=== PATIENT | male | born 1990 | race Caucasian/White ===

== ENCOUNTER 2017-11-12 06:41 | Emergency (ER) | payer OTHER ==
[2017-11-12 06:52] VITALS: RESP 18; TEMP 98.3
[2017-11-12] MEDS ORDERED: DIPH,PERTUS(ACELL)TETVAC-LF 0.5 ML VIAL IM ONE (07:01)
--- NOTE | 2017-11-12 07:31 | ED ---
General Adult HPI - General Chief complaint: Extremity Injury, Lower Stated complaint: [facility] Stepped on nail,needs tetanus Time Seen by Provider: 11/12/17 07:01 Source: patient, RN notes reviewed, old records reviewed Mode of arrival: ambulatory Limitations: no limitations - History of Present Illness Initial comments: 27-year-old male presents from work after stepping on a nail. Patient was wearing his work boots. Nail was intact, no concern for foreign body. This was his right foot. Patient is presenting with request for tetanus vaccination. Denies any other injury. This occurred several hours prior to arrival. - Related Data Previous Rx's Medication Instructions Recorded Levofloxacin [Levaquin] 500 mg PO DAILY 3 Days #5 tab 11/12/17 Allergies Allergy/AdvReac Type Severity Reaction Status Date / Time Penicillins AdvReac Unknown Verified 11/12/17 07:53 Review of Systems ROS Statement: Those systems with pertinent positive or pertinent negative responses have been documented in the HPI. ROS Other: All systems not noted in ROS Statement are negative. Past Medical History Past Medical History: No Reported History History of Any Multi-Drug Resistant Organisms: None Reported Past Surgical History: No Surgical Hx Reported Past Psychological History: No Psychological Hx Reported Smoking Status: Never smoker Past Alcohol Use History: None Reported Past Drug Use History: None Reported General Exam Limitations: no limitations General appearance: alert, in no apparent distress Respiratory exam: Present: normal lung sounds bilaterally. Absent: respiratory distress Cardiovascular Exam: Present: regular rate, normal rhythm Extremities exam: Present: other (Very small puncture wound on the mid plantar surface of right foot, no bleeding, no significant pain or erythema.) Course Vital Signs 11/12/17 11/12/17 06:50 07:57 Temperature 98.3 F Pulse Rate 59 L 72 Respiratory 18 18 Rate Blood Pressure 133/81 124/74 O2 Sat by Pulse 100 98 Oximetry Medical Decision Making - Medical Decision Making Patient's tetanus is updated. He is started on prophylactic antibiotics for puncture injury through the sole of the shoe. He will follow-up with his primary care physician. He will watch closely for signs of infection. Disposition Clinical Impression: Puncture wound of skin from metal nail Disposition: HOME SELF-CARE Condition: Good Instructions: Puncture Wound (ED) Prescriptions: Levofloxacin [Levaquin] 500 mg PO DAILY 3 Days #5 tab Is patient prescribed a controlled substance at d/c from ED?: No Referrals: Chuck De La Cruz DO [Primary Care Provider] - 1-2 days Time of Disposition: 07:30
[2017-11-12 07:59] VITALS: BP 124/74; PULSE 72
== END 2017-11-12 08:03 | disposition home or self-care (01) ==
LOC: EC 06:41
DX: S91.331A Puncture wound without foreign body, right foot, initial encounter (principal); Z23 Encounter for immunization; Z88.0 Allergy status to penicillin; W45.0XXA Nail entering through skin, initial encounter; Y92.69 Other specified industrial and construction area as the place of occurrence of the external cause; Y99.0 Civilian activity done for income or pay
CPT/HCPCS: 90471; 90715; 99283

== ENCOUNTER 2022-10-02 10:37 | Inpatient (IN) | payer OTHER ==
[2022-10-02] MEDS ORDERED: LORazepam 1 MG TAB PO ONE (12:20)
--- NOTE | 2022-10-02 12:22 | ED ---
General Adult HPI - General Source: police, RN notes reviewed Mode of arrival: ambulatory Limitations: no limitations <Dora Shoemaker - Last Filed: 10/02/22 18:41> <Berta Jeronimo - Last Filed: 10/03/22 15:44> - General Chief complaint: Psychiatric Symptoms Stated complaint: petition Time Seen by Provider: 10/02/22 11:28 - History of Present Illness Initial comments: 32-year-old male with extensive psychiatric medical history presents to the emergency department with a chief complaint of psychiatric evaluation. He is placed escorted today. He reports worsening depression, anxiety, OCD. He denies any suicidal ideation at this time, highly homicidal ideation. However he does report increased aggression that is unpredictable. He will have outbursts and be aggressive with his . He denies any visual or auditory hallucinations. Denies any illicit drug use. Denies any specific complaints at this time. Patient is been taking his Prozac as prescribed. (Dora Shoemaker ) - Related Data Home Medications Medication Instructions Recorded Confirmed PARoxetine [Paxil] 20 mg PO BID 10/02/22 10/02/22 Allergies Allergy/AdvReac Type Severity Reaction Status Date / Time Penicillins AdvReac Unknown Verified 10/02/22 16:09 Childhood Review of Systems ROS Other: All systems not noted in ROS Statement are negative. <Dora Shoemaker - Last Filed: 10/02/22 18:41> ROS Other: All systems not noted in ROS Statement are negative. <Berta Jeronimo - Last Filed: 10/03/22 15:44> ROS Statement: Those systems with pertinent positive or pertinent negative responses have been documented in the HPI. Past Medical History Past Medical History: No Reported History History of Any Multi-Drug Resistant Organisms: None Reported Past Surgical History: No Surgical Hx Reported Past Psychological History: Anxiety, Bipolar, Panic Disorder Smoking Status: Never smoker Past Alcohol Use History: None Reported Past Drug Use History: Marijuana <Dora Shoemaker - Last Filed: 10/02/22 18:41> General Exam Limitations: no limitations <Dora Shoemaker - Last Filed: 10/02/22 18:41> - General Exam Comments Initial Comments: General: Alert, in no acute distress Head: atraumatic normocephalic. Eyes PERRL, EOMI intact, mucous membranes moist Respiratory: Lungs clear to auscultation bilaterally Cardiovascular: Heart rate regular rate and rhythm Abdominal: Soft without guarding or rebound Extremities: Normal inspection with full range of motion and normal capillary refill Neuroogic: alert and oriented 3, CN II-XII intact, able to ambulate with steady gait Skin: warm dry and intact with normal color (Dora Shoemaker) Course <Dora Shoemaker - Last Filed: 10/02/22 18:41> Vital Signs 10/02/22 10/02/22 10:40 14:57 Temperature 98 F Pulse Rate 59 L 74 Respiratory 20 18 Rate Blood Pressure 136/88 130/76 O2 Sat by Pulse 99 99 Oximetry - Reevaluation(s) Reevaluation #1: 10/02/22 12:22 [place] discussed with ROSA ISELA Nicole RN who believes the patient meets inpatient criteria. (Dora Shoemaker) Medical Decision Making <Dora Shoemaker - Last Filed: 10/02/22 18:41> - Lab Data Result diagrams: 10/03/22 06:44 10/03/22 06:44 <Berta Jeronimo - Last Filed: 10/03/22 15:44> - Medical Decision Making Was pt. sent in by a medical professional or institution (WEN [place]ona, POEM WRITER, urgent care, hospital, or assisted...) When possible be specific @ -[No] Did you speak to anyone other than the patient for history (EMS, parent, family, police, friend...)? What history was obtained from this source @ -[facility] Did you review nursing and triage notes (agree or disagree)? Why? @ -[I reviewed and agree with nursing and triage notes] Were old charts reviewed (outside hosp., previous admission, EMS record, old EKG, old radiological studies, urgent care reports/EKG's, assisted records)? Report findings @ -[No old charts were reviewed] Differential Diagnosis (chest pain, altered mental status, abdominal pain women, abdominal pain men, vaginal bleeding, weakness, fever, dyspnea, syncope, headache, dizziness, GI bleed, back pain, seizure, CVA, palpatations, mental health, musculoskeletal)? @ -[not applicable] EKG interpreted by me (3pts min.). @ -[As above] X-rays interpreted by me (1pt min.). @ -[None done] CT interpreted by me (1pt min.). @ -[None done] U/S interpreted by me (1pt. min.). @ -[None done] What testing was considered but not performed or refused? (CT, X-rays, U/S, labs)? Why? @ -[None] patient is homicidal and unpredictable with increased agitation What meds were considered but not given or refused? Why? @ -[None] Did you discuss the management of the patient with other professionals (professionals i.e. , PA, POEM WRITER, lab, RT, psych nurse, social welfare research worker, senior software systems engineer, teacher, defence force senior officer, mental health case manager)? Give summary @ -Case discussed with EPS RN Who Please the Patient Meets Inpatient Criteria Management Was smoking cessation discussed for >3mins.? @ -[No] Was critical care preformed (if so, how long)? @ -[No] Were there social determinants of health that impacted care today? How? (Homelessness, low income, unemployed, alcoholism, drug addiction, transportation, low edu. Level, literacy, decrease access to med. care, long-term, rehab)? @ -[No] Was there de-escalation of care discussed even if they declined (Discuss DNR or withdrawal of care, Hospice)? DNR status @ -[No] What co-morbidities impacted this encounter? (DM, HTN, Smoking, COPD, CAD, Cancer, CVA, ARF, Chemo, Hep., AIDS, mental health diagnosis, sleep apnea, morbid obesity)? @ -[None] Was patient admitted / discharged? Hospital course, mention meds given and route, prescriptions, significant lab abnormalities, going to OR and other pertinent info. @ -6 admission. This is a 32-year-old male who presents the emergency department with increased aggressiveness and homicidal ideation. Patient had a thorough history and physical exam performed on the emergency department. Physical exam is essentially unremarkable. Heart rate regular rate and rhythm, lungs clear to auscultation bilaterally, abdomen soft and nontender. Patient is calm and cooperative with ED staff. He was seen and evaluated by Bonnie EPS RN who recommends inpatient psychiatric management. Patient was given oral Ativan. Patient was petitioned. Case discussed with Dr. Jeronimo, [facility] who agrees with plan of care Undiagnosed new problem with uncertain prognosis? @ -[No] Drug Therapy requiring intensive monitoring for toxicity (Heparin, Nitro, Insulin, Cardizem)? @ -[No] Were any procedures done? @ -[No] Diagnosis/symptom? @ -Homicidal Ideation Acute, or Chronic, or Acute on Chronic? @ -Acute Uncomplicated (without systemic symptoms) or Complicated (systemic symptoms)? @ -Uncomplicated Side effects of treatment? @ -[No] Exacerbation, Progression, or Severe Exacerbation? @ -[No] Poses a threat to life or bodily function? How? (Chest pain, USA, MD, pneumonia, PE, COPD, DKA, ARF, appy, cholecystitis, CVA, Diverticulitis, Homicidal, Suicidal, threat to staff... and all critical care pts) @ -High likelihood, Patient is homicidal with increased aggression (Dora Paredes) I filled out the certification on the patient (Berta Jeronimo) - Lab Data Lab Results 10/02/22 Range/Units 12:14 Coronavirus (PCR) Not Detected (Not Detectd) Disposition Time of Disposition: 12:22 <Dora hSoemaker - Last Filed: 10/02/22 18:41> <Berta Jeronimo - Last Filed: 10/03/22 15:44> Clinical Impression: Depression, Acute anxiety, Aggressive behavior Disposition: ADMITTED IP TO [facility] Condition: Stable
[2022-10-02] MEDS ORDERED: MAG HYDROX/AL HYDROX/SIMETH 30 ML CUP PO PRN (14:41)
[2022-10-02] MEDS ORDERED: LORazepam 2 MG/ML INJ IM PRN (14:47)
[2022-10-02] MEDS ORDERED: HALOPERIDOL LACTATE 5 MG/ML 1 ML VIAL IM PRN (14:48)
[2022-10-03 07:45] LABS: Basophils % (A) 0 %; Eosinophils # (A) 0.3 k/uL (0-0.7); Eosinophils % (A) 4 %; HCT 41.4 % (39.0-53.0); HGB 13.8 gm/dL (13.0-17.5); Lymphocytes # (A) 1.8 k/uL (1.0-4.8); Lymphocytes % (A) 25 %; MCH 31.7 pg (25.0-35.0); MCHC 33.2 g/dL (31.0-37.0); MCV 95.3 fL (80.0-100.0); Mean Platelet Volume 7.1; Monocytes # (A) 0.5 k/uL (0-1.0); Monocytes % (A) 7 %; Neutrophils # (A) 4.2 k/uL (1.3-7.7); Neutrophils % (A) 61 %; Platelet Count 297 k/uL (150-450); RBC 4.35 m/uL (4.30-5.90); RDW 11.9 % (11.5-15.5)
[2022-10-03 07:59] LABS: ALT 22 U/L (4-49); AST 31 U/L (17-59); African American GFR (CKD) >90 (>60 ml/min/1.73 sqM); Alkaline Phosphatase 71 U/L (38-126); Anion Gap 7 mmol/L; Blood Urea Nitrogen 15 mg/dL (9-20); Calcium 9.1 mg/dL (8.4-10.2); Carbon Dioxide 27 mmol/L (22-30); Chloride 106 mmol/L (98-107); Glucose 85 mg/dL (74-99); Non-African American GFR(CKD) >90 (>60 ml/min/1.73 sqM); Potassium 4.8 mmol/L (3.5-5.1); Sodium 140 mmol/L (137-145); Total Bilirubin 0.8 mg/dL (0.2-1.3); Total Protein 7.1 g/dL (6.3-8.2)
[2022-10-03] MEDS: haloperidoL 5 MG TAB PO PRN (09:23)
[2022-10-03] MEDS: LORazepam 1 MG TAB PO PRN ×2 (09:23→20:05)
[2022-10-03] MEDS: NICOTINE 14MG/24HR PATCH TRANSDERM SCH (10:05)
[2022-10-03] MEDS ORDERED: diphenhydrAMINE 50 MG/ML 1 ML VIAL IM PRN (10:38)
--- NOTE | 2022-10-03 12:11 | CT ---
EXAMINATION TYPE: CT brain wo con DATE OF EXAM: 10/03/2022 COMPARISON: None HISTORY: Head trauma, normal mental status CT DLP: 1047.[address] of the brain was performed. The ventricles, basal cisterns and sulci overlying the cerebral convexities demonstrate a normal appe arance. There is no evidence for intracranial hemorrhage or sulcal effacement. No mass effects are seen. Osseous calvarium is intact. If symptoms persist consider MRI as clinically warranted. IMPRESSION: 1. No acute intracranial process is seen at this time.
[2022-10-03] MEDS ORDERED: IBUPROFEN 400 MG TAB PO PRN (12:43)
[2022-10-03 13:36] LABS: Chol/HDL Ratio 3.37 Ratio; LDL Cholesterol,Calculated 117.4 mg/dL (0.0-131.0); VLDL Calculation 14.82 mg/dL (5.00-40.00)
--- NOTE | 2022-10-03 14:02 | P.MDCNMH ---
History of Present Illness H&P Date: 10/03/22 History of present illness; patient is a 32-year-old gentleman with past medical significant for depression presented to the ER for psychiatric evaluation. Patient has been having worsening depression and periods of aggressive outbursts. Patient apparently is aggressive with his . Patient having homicidal thoughts. Denies any suicidal thoughts. Denies any auditory or v isual hallucinations. Patient was worked up in the ER, Initial lab work done in the ER showed WBC 7, hemoglobin 13.8, platelet count 297, sodium 140, potassium 4.8, BUN 15, creatinine 0.86 patient was admitted to inpatient psych Once patient was on the floor, patient did have an episode of aggressive outbursts when he hit his head against the wall, patient ended up losing one of his tooth. On examination there is no obvious trauma patient is currently calm. REVIEW OF SYSTEMS: CONSTITUTIONAL: No fever, no malaise, no fatigue. HEENT: No recent visual problems or hearing problems. Denied any sore throat. Patient has one on the front teeth missing CARDIOVASCULAR: No chest pain, orthopnea, PND, no palpitations, no syncope. PULMONARY: No shortness of breath, no cough, no hemoptysis. GASTROINTESTINAL: No diarrhea, no nausea, no vomiting, no abdominal pain. NEUROLOGICAL: No headaches, no weakness, no numbness. HEMATOLOGICAL: Denies any bleeding or petechiae. GENITOURINARY: Denies any burning micturition, frequency, or urgency. MUSCULOSKELETAL/RHEUMATOLOGICAL: Denies any joint pain, swelling, or any muscle pain. ENDOCRINE: Denies any polyuria or polydipsia. The rest of the 14-point review of systems is negative. PHYSICAL EXAMINATION: GENERAL: The patient is alert , not in any acute distress. Well developed, well nourished. HEENT: Pupils are round and equally reacting to light. EOMI. No scleral icterus. No conjunctival pallor. Normocephalic, atraumatic. No pharyngeal erythema. No thyromegaly. CARDIOVASCULAR: S1 and S2 present. No murmurs, rubs, or gallops. PULMONARY: Chest is clear to auscultation, no wheezing or crackles. ABDOMEN: Soft, nontender, nondistended, normoactive bowel sounds. No palpable organomegaly. MUSCULOSKELETAL: No joint swelling or deformity. EXTREMITIES: No cyanosis, clubbing, or pedal edema. NEUROLOGICAL: Gross neurological examination did not reveal any focal deficits. SKIN: No rashes. Assessment and plan Aggressive outbursts Homicidal ideations Depression Monitor vital signs CT head ordered was negative for any acute intracranial process Continue psych meds per psychiatry team Labs and medication were reviewed.. Continue same treatment. Continue with symptomatic treatment. Resume home medication. Monitor labs and vitals. DVT and GI prophylaxis. Further recommendations as per clinical course of the patient Dictation was produced using [employer] dictation software. please excuse any grammatical, word or spelling errors. Past Medical History Past Medical History: No Reported History History of Any Multi-Drug Resistant Organisms: None Reported Past Surgical History: No Surgical Hx Reported Past Psychological History: Anxiety, Bipolar, Panic Disorder Smoking Status: Never smoker Past Alcohol Use History: None Reported Past Drug Use History: Marijuana Medications and Allergies Home Medications Medication Instructions Recorded Confirmed Type PARoxetine [Paxil] 20 mg PO BID 10/02/22 10/02/22 History Allergies Allergy/AdvReac Type Severity Reaction Status Date / Time Penicillins AdvReac Unknown Verified 10/02/22 16:09 Childhood Physical Exam Vitals: Vital Signs Temp Pulse Pulse Resp BP BP Pulse Ox 10/02/22 16:25 98.5 F 67 17 129/76 10/02/22 14:57 74 18 130/76 99 Cranial Nerve Examination - Cranial Nerves Cranial Nerve II- Optic: Intact (Cranial nerves II 12 intact) Cranial Nerve III- Oculomotor: Intact Cranial Nerve IV- Trochlear: Intact Cranial Nerve V- Trigeminal: Intact Cranial Nerve - Abducens: Intact Cranial Nerve VII- Facial: Intact Cranial Nerve VIII- Auditory: Intact Cranial Nerve IX- Glossopharyngeal: Intact Cranial Nerve X- Vagus: Intact Cranial Nerve XI- Accessory: Intact Cranial Nerve XII- Hypoglossal: Intact Results CBC & Chem 7: 10/03/22 06:44 10/03/22 06:44
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
[2022-10-04] MEDS: NICOTINE 14MG/24HR PATCH TRANSDERM SCH (17:06)
--- NOTE | 2022-10-04 19:35 | P.PN ---
Progress Note - Text Progress Note Date: 10/04/22 Interval History: Patient was seen isolating to his bed with 1:1 staff at bedside to maintain safety. He has been asleep most of the day per staff report, has not been attending many groups, but did communicate with staff about his anger issues. Per nursing report, he continues to be labile and impulsive, and threw books on the floor in the lounge because he did not like the books offered to him. He is passively engaged in assessment, but admits to needing mental health treatment. At this time patient denies any suicidal or homicidal ideation, intent or plan. Patient denies any auditory, visual hallucinations and denies any paranoia or delusions. Patient denies any side effects from the medications and has been compliant with meds. Mental Status Exam: General Appearance: Patient appears to be stated age, slender male, with front tooth missing, covered in blanket. Behavior: Patient is calmly laying in bed with blanket covering most of this body except face. He is passively engaged in assessment and calm at time of assessment, but can be impulsive and threw books on the floor in the lounge earlier today. Speech: Patient's speech is fluent and non-pressured. Mood/Affect: Mood is irritable at times, affect is labile. Suicidality/Homicidality: Patient denies having any suicidal or homicidal ideation intent or plan. Perceptions: Patient denies any visual hallucinations and denies any auditory hallucinations. Though content/process: There is no evidence of any delusional thought content and thought process is linear but brief. Memory and concentration: AOX3, grossly intact for the purposes of this session Judgment and insight: poor Assessment: Unspecified mood disorder Intermittent Explosive Disorder Rule out personality disorder Plan: -Patient continues to meet criteria for inpatient psychiatric admission for symptom stabilization and safety. Patient has not signed adult voluntary form and medication consent. -Medications: Will start Trileptal 300 mg BID for mood lability starting tonight. -Continue 1:1 observation to maintain safety. -When necessary Ativan and Haldol for agitation/aggression. -NRT - nicotine patch -SW on board for discharge planning. Encouraged the patient to participate in milieu.
[2022-10-04] MEDS: OXcarbazepine 300 MG TAB PO SCH (21:54)
[2022-10-04] MEDS: LORazepam 1 MG TAB PO PRN (21:54)
[2022-10-04] MEDS: haloperidoL 5 MG TAB PO PRN (21:54)
[2022-10-05] MEDS: NICOTINE 14MG/24HR PATCH TRANSDERM SCH ×2 (09:12→15:38)
[2022-10-05] MEDS: OXcarbazepine 300 MG TAB PO SCH ×2 (09:12→21:01)
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
[2022-10-05] MEDS ORDERED: VENLAFAXINE HCL ER 75 MG CAP PO SCH (21:00)
[2022-10-05] MEDS: cloNIDine HCL 0.1 MG TAB PO SCH (21:01)
[2022-10-06] MEDS: NICOTINE 14MG/24HR PATCH TRANSDERM SCH (09:02)
[2022-10-06] MEDS: OXcarbazepine 300 MG TAB PO SCH ×2 (09:03→21:17)
[2022-10-06] MEDS: cloNIDine HCL 0.1 MG TAB PO SCH ×2 (09:03→21:17)
--- NOTE | 2022-10-06 11:31 | P.PN ---
Progress Note - Text Progress Note Date: 10/06/22 Interval History: Patient was seen attending group and was directable and agreeable to speak with ad copy writer in the office. We, the patient is not reporting any suicidal or homicidal ideation, intention, and/or plan. He is not reporting any auditory or visual hallucinations. He denies any paranoia or other delusions. He reports improved sleep. He does report elevated anxiety in regards to his legal stressors as well as his current living situation. When presented with the idea that he might be incarcerated, the patient expresses that he feels like he would severely decline mentally. He is agreeable to further titration of his Effexor. He has been adherent with his medication is not reporting any significant side effects. Mental Status Exam: General Appearance: Patient appears to be stated age is alert, directable, and cooperative. Behavior: Patient is calmly seated upright in the chair without any agitated behavior. Good eye contact. Speech: Patient's speech is fluent and nonpressured. Mood/Affect: Mood is improving mildly, affect is congruent and euthymic today. Suicidality/Homicidality: Patient currently denies any suicidal or homicidal ideation, intention, and/or plan. Perceptions: Patient denies any visual hallucinations and denies any auditory hallucinations Though content/process: There is no evidence of any delusional thought content and thought process is linear and goal-directed. Memory and concentration: AOX3, grossly intact for the purposes of this session Judgment and insight: Improving mildly Vital Signs Temp 98.7 F 10/06/22 06:21 Pulse 101 H 10/06/22 06:21 Resp 18 10/06/22 06:21 BP 124/79 10/06/22 06:21 Pulse Ox 97 10/06/22 06:21 FiO2 Assessment Unspecified mood disorder Rule out personality disorder - suspect cluster B Intermittent Explosive Disorder PTSD Plan: -Patient continues to meet criteria for inpatient psychiatric admission for symptom stabilization and safety. The patient has been petitioned and certified. -Medications: Catapres 0.1 mg by mouth twice a day for PTSD Increase Effexor to 150 mg daily at bedtime for PTSD/mood Trileptal 300 mg by mouth twice a day for mood -When necessary Ativan, Haldol, and Benadryl for agitation/aggression. -NRT - nicotine patch -SW on board for discharge planning. Encouraged the patient to participate in milieu.
[2022-10-06] MEDS: ACETAMINOPHEN TAB 325 MG TAB PO PRN (20:23)
[2022-10-06] MEDS: VENLAFAXINE HCL ER 150 MG CAP PO SCH (21:17)
[2022-10-07 06:59] VITALS: RESP 16
[2022-10-07] MEDS: OXcarbazepine 300 MG TAB PO SCH ×2 (08:23→21:28)
[2022-10-07] MEDS: NICOTINE 14MG/24HR PATCH TRANSDERM SCH (08:23)
[2022-10-07] MEDS: cloNIDine HCL 0.1 MG TAB PO SCH ×2 (08:23→21:28)
--- NOTE | 2022-10-07 11:09 | P.PN ---
Progress Note - Text Progress Note Date: 10/07/22 Interval History: Patient was seen attending group and was directable and agreeable to speak with food writer in the office. Currently, the patient is not reporting any suicidal or homicidal ideation, intention, and/or plan. He reports no auditory or visual hallucinations. He denies any paranoia or other delusions. The patient reports that he has been better equipped to deal with anxiety and stress since admission. He reports feeling positive about the medication. He was informed about his status as a [facility]pc hold. He expresses disappointment but understanding. He reports no medical issues or concerns. Mental Status Exam: General Appearance: Patient appears to be stated age is alert, directable, and cooperative. Behavior: Patient is calmly seated upright in the chair without any agitated behavior. Good eye contact. Speech: Patient's speech is fluent and nonpressured. Mood/Affect: Mood is slightly anxious, affect is congruent and euthymic Suicidality/Homicidality: Patient currently denies any suicidal or homicidal ideation, intention, and/or plan. Perceptions: Patient denies any visual hallucinations and denies any auditory hallucinations Though content/process: There is no evidence of any delusional thought content and thought process is linear and goal-directed. Memory and concentration: AOX3, grossly intact for the purposes of this session Judgment and insight: Improving mildly Vital Signs Temp 97.2 F L 10/07/22 06:13 Pulse 109 H 10/07/22 06:13 Resp 16 10/07/22 06:13 BP 129/85 10/07/22 06:13 Pulse Ox 97 10/06/22 06:21 FiO2 Assessment Unspecified mood disorder Rule out personality disorder - suspect cluster B Intermittent Explosive Disorder PTSD -Medications: Catapres 0.1 mg by mouth twice a day for PTSD Continue Effexor 150 mg daily at bedtime for PTSD/mood Trileptal 300 mg by mouth twice a day for mood -When necessary Ativan, Haldol, and Benadryl for agitation/aggression. -NRT - nicotine patch -SW on board for discharge planning. Encouraged the patient to participate in milieu.
[2022-10-07] MEDS: LORazepam 1 MG TAB PO PRN (18:34)
[2022-10-07] MEDS: ACETAMINOPHEN TAB 325 MG TAB PO PRN (18:34)
[2022-10-07] MEDS: haloperidoL 5 MG TAB PO PRN (19:56)
[2022-10-07] MEDS: VENLAFAXINE HCL ER 150 MG CAP PO SCH (21:28)
[2022-10-08 05:37] VITALS: BP 132/72; PULSE 62; TEMP 96.8
[2022-10-08] MEDS: OXcarbazepine 300 MG TAB PO SCH (08:35)
[2022-10-08] MEDS: cloNIDine HCL 0.1 MG TAB PO SCH (08:35)
[2022-10-08] MEDS: NICOTINE 14MG/24HR PATCH TRANSDERM SCH (08:35)
[2022-10-08] MEDS ORDERED: LORazepam 1 MG TAB PO PRN (09:41)
[2022-10-08] MEDS ORDERED: haloperidoL 5 MG TAB PO PRN (09:41)
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
[2022-10-08] MEDS: LORazepam 1 MG TAB PO PRN (11:45)
[2022-10-08] MEDS: haloperidoL 5 MG TAB PO PRN (11:45)
== END 2022-10-08 16:00 | DRG 882 ==
LOC: EC 10:37 → 3MHU 14:32
PROVIDERS: ADMIT Psychiatry & Neurology Psychiatry; ATTEND Psychiatry & Neurology Psychiatry
DX: F43.25 Adjustment disorder with mixed disturbance of emotions and conduct (principal); F17.210 Nicotine dependence, cigarettes, uncomplicated; F31.9 Bipolar disorder, unspecified; F41.0 Panic disorder [episodic paroxysmal anxiety]; F42.9 Obsessive-compulsive disorder, unspecified; F43.10 Post-traumatic stress disorder, unspecified; F60.89 Other specific personality disorders; F63.81 Intermittent explosive disorder; F94.1 Reactive attachment disorder of childhood; R45.850 Homicidal ideations; W22.01XA Walked into wall, initial encounter; Z79.899 Other long term (current) drug therapy; T43.96XA Underdosing of unspecified psychotropic drug, initial encounter; Z91.199 Patient's noncompliance with other medical treatment and regimen due to unspecified reason; Z63.5 Disruption of family by separation and divorce; Z20.822 Contact with and (suspected) exposure to COVID-19; Z88.0 Allergy status to penicillin
CPT/HCPCS: 70450; 80053; 80061; 83036; 85025; 87635

== ENCOUNTER 2022-10-29 13:42 | Emergency (ER) | payer SELFPAY ==
[2022-10-29 13:50] VITALS: BP 117/87; PULSE 105; RESP 18; TEMP 98.6
--- NOTE | 2022-10-29 13:51 | ED ---
General Adult HPI - General Stated complaint: Psych Meds Injection Time Seen by Provider: 10/29/22 13:45 Source: patient, RN notes reviewed, old records reviewed - History of Present Illness Initial comments: This is a 32-year-old male who presents emergency department from the assisted. Patient is court ordered to receive a shock. Patient is supposed to get it at the assisted but they were ran out of the medicine so they sent him to emergency department they were also requesting EPS to evaluate the patient. Patient himself does not want a shot and states that he thinks the preservatives potentially harm his heart. Patient denies any recent fever chills or cough per patient denies any chest pain or - Related Data Previous Rx's Medication Instructions Recorded OXcarbazepine [Trileptal] 300 mg PO BID 30 Days #60 tab 10/08/22 Venlafaxine HCl ER [Effexor XR] 150 mg PO HS 30 Days #30 cap 10/08/22 cloNIDine HCL [Catapres] 0.1 mg PO BID 30 Days #60 tab 10/08/22 Allergies Allergy/AdvReac Type Severity Reaction Status Date / Time Penicillins AdvReac Unknown Verified 10/02/22 16:09 Childhood Review of Systems ROS Statement: Those systems with pertinent positive or pertinent negative responses have been documented in the HPI. ROS Other: All systems not noted in ROS Statement are negative. Past Medical History Past Medical History: No Reported History History of Any Multi-Drug Resistant Organisms: None Reported Past Surgical History: No Surgical Hx Reported Past Psychological History: Anxiety, Bipolar, Panic Disorder Smoking Status: Never smoker Past Alcohol Use History: None Reported Past Drug Use History: Marijuana General Exam - General Exam Comments Initial Comments: GENERAL: Patient is well-developed and well-nourished. Patient is nontoxic and well- hydrated and is in no acute distress. ENT: Neck is soft and supple. No significant lymphadenopathy is noted. Oropharynx is clear. Moist mucous membranes. Neck has full range of motion without eliciting any pain. EYES: The sclera were anicteric and conjunctiva were pink and moist. Extraocular movements were intact and pupils were equal round and reactive to light. Eyelids were unremarkable. SKIN: Skin is clear with no lesions or rashes and otherwise unremarkable. NEUROLOGIC: Patient is alert and oriented x3. Cranial nerves II through XII are grossly intact. Motor and sensory are also intact. Normal speech, volume and content. Symmetrical smile. MUSCULOSKELETAL: Normal extremities with adequate strength and full range of motion. LYMPHATICS: No significant lymphadenopathy is noted PSYCHIATRIC: Patient is making statements that he believes preservatives in the medication he gets could because of heart problems Course Vital Signs 10/29/22 13:46 Temperature 98.6 F Pulse Rate 105 H Respiratory 18 Rate Blood Pressure 117/87 O2 Sat by Pulse 99 Oximetry Medical Decision Making - Medical Decision Making Was pt. sent in by a medical professional or institution ([facility], PROJECT CONSTRUCTION ASSISTANT MANAGER, urgent care, hospital, or [facility]...) When possible be specific @ -Patient was brought in from assisted under the direction of their psychiatrist Did you speak to anyone other than the patient for history (EMS, parent, family, police, friend...)? What history was obtained from this source @ -No Did you review nursing and triage notes (agree or disagree)? Why? @ -I reviewed and agree with nursing and triage notes Were old charts reviewed (outside hosp., previous admission, EMS record, old EKG, old radiological studies, urgent care reports/EKG's, [facility] records)? Report findings @ -No old charts were reviewed Differential Diagnosis (chest pain, altered mental status, abdominal pain women, abdominal pain men, vaginal bleeding, weakness, fever, dyspnea, syncope, headache, dizziness, GI bleed, back pain, seizure, CVA, palpatations, mental health, musculoskeletal)? @ -Pharyngeal mental health EKG interpreted by me (3pts min.). @ -As above X-rays interpreted by me (1pt min.). @ -None done CT interpreted by me (1pt min.). @ -None done U/S interpreted by me (1pt. min.). @ -None done What testing was considered but not performed or refused? (CT, X-rays, U/S, labs)? Why? @ -None What meds were considered but not given or refused? Why? @ -None Did you discuss the management of the patient with other professionals (professionals i.e. W[facility] Escalona, PROJECT CONSTRUCTION ASSISTANT MANAGER, lab, RT, psych nurse, dialysis social worker, regional commercial sales manager, teacher, [place] police officer, patient case coordinator)? Give summary @ -EPS evaluated the situation as well as the patient and spoke with the psychiatrist here he recommended Zyprexa orally patient was willing to take Was smoking cessation discussed for >3mins.? @ -No Was critical care preformed (if so, how long)? @ -No Were there social determinants of health that impacted care today? How? (Homelessness, low income, unemployed, alcoholism, drug addiction, transportation, low edu. Level, literacy, decrease access to med. care, assisted, rehab)? @ -No Was there de-escalation of care discussed even if they declined (Discuss DNR or withdrawal of care, Hospice)? DNR status @ -No What co-morbidities impacted this encounter? (DM, HTN, Smoking, COPD, CAD, Cancer, CVA, ARF, Chemo, Hep., AIDS, mental health diagnosis, sleep apnea, morbid obesity)? @ -None Was patient admitted / discharged? Hospital course, mention meds given and route, prescriptions, significant lab abnormalities, going to OR and other pertinent info. @ -Received oral Zyprexa which she was in agreement with taking and this was done under the direction of our psychiatrist. Undiagnosed new problem with uncertain prognosis? @ -No Drug Therapy requiring intensive monitoring for toxicity (Heparin, Nitro, Insulin, Cardizem)? @ -No Were any procedures done? @ -No Diagnosis/symptom? @ -Bipolar Acute, or Chronic, or Acute on Chronic? @ -Chronic Uncomplicated (without systemic symptoms) or Complicated (systemic symptoms)? @ -Uncomplicated Side effects of treatment? @ -[o]Exacerbation, Progression, or Severe Exacerbation? @ -[o]Poses a threat to life or bodily function? How? (Chest pain, [place], [place], pneumonia, PE, COPD, DKA, ARF, appy, cholecystitis, CVA, Diverticulitis, Homicidal, Suicidal, threat to staff... and all critical care pts) @ -[o] Disposition Clinical Impression: Bipolar disorder Disposition: HOME SELF-CARE Condition: Good Instructions (If sedation given, give patient instructions): Bipolar Disorder (ED) Is patient prescribed a controlled substance at d/c from ED?: No Referrals: None,Stated [REFERRING] - 1-2 days Time of Disposition: 15:39
[2022-10-29] MEDS ORDERED: OLANZapine 10 MG TAB PO STA (14:49)
== END 2022-10-29 15:45 | disposition home or self-care (01) ==
LOC: EC 13:42
DX: F31.9 Bipolar disorder, unspecified (principal); F12.90 Cannabis use, unspecified, uncomplicated; F41.9 Anxiety disorder, unspecified; Z79.899 Other long term (current) drug therapy; Z88.0 Allergy status to penicillin
CPT/HCPCS: 82075; 99284